=== PATIENT | male | born 1995 | race Caucasian/White ===

== ENCOUNTER 2016-11-24 19:47 | Emergency (ER) | payer OTHER ==
[2016-11-24 19:55] VITALS: BMI 29.8
--- NOTE | 2016-11-24 20:34 | PDOC ---
History of Present Illness - General Chief Complaint: Edema Stated Complaint: SWOLLEN FACE Time Seen by Provider: 11/24/16 20:02 - History of Present Illness Initial Comments: 11/24/16 20:25 Patient is a 21-year-old male with no significant past medical history complaining of right jaw pain since this morning. States woke up this morning with mild pain to the angle of the jaw then noticed swelling. Pain is 6/10, throbbing, worsen when he tries to open the mouth. Denies dental issue, fever, chills. No recent illness, no vial infections. Not worsened with eating. No SOB PMD: Dr. Kline PMHX: seasonal allergies ALL: NKDA GENERAL/CONSTITUTIONAL: [No fever or chills. No weakness. No weight change.] HEAD, EYES, EARS, NOSE AND THROAT: [No change in vision. No ear pain or discharge. No sore throat.] CARDIOVASCULAR: [No chest pain or shortness of breath.] RESPIRATORY: [No cough, wheezing, or hemoptysis.] GASTROINTESTINAL: [No nausea, vomiting, diarrhea or constipation. No rectal bleeding.] GENITOURINARY: [No dysuria, frequency, or change in urination.] MUSCULOSKELETAL: [No joint or muscle swelling or pain. No neck or back pain.] SKIN AND BREASTS: [No rash or easy bruising.] NEUROLOGIC: [No headache, vertigo, loss of consciousness, or loss of sensation.] PSYCHIATRIC: [No depression or anxiety.] ENDOCRINE: [No increased thirst. No abnormal weight change.] HEMATOLOGIC/LYMPHATIC: [No anemia, easy bleeding, or history of blood clots.] ALLERGIC/IMMUNOLOGIC: [No hives or skin allergy. No latex allergy.] GENERAL: [The patient is awake, alert, and fully oriented, in no acute distress. ] HEAD: [Normal with no signs of trauma.] EYES: [Pupils equal, round and reactive to light, extraocular movements intact, sclera anicteric, conjunctiva clear.] ENT: [Ears normal, nares patent, oropharynx clear without exudates, no swelling uvula midline. Moist mucous membranes, ] NECK: [Normal range of motion, supple without lymphadenopathy, JVD, or masses, ( +) swelling at the angle of the jaw, tenderness to palp, (-) lymphodenopathy in the head and neck ] LUNGS: [Breath sounds equal, clear to auscultation bilaterally. No wheezes, and no crackles.] HEART: [Regular rate and rhythm, normal S1 and S2 without murmur, rub.] ABDOMEN: [Soft, nontender, normoactive bowel sounds. No guarding, no rebound. No masses.] EXTREMITIES: [Normal range of motion, no edema. No clubbing or cyanosis. No cords, erythema, or tenderness.] NEUROLOGICAL: [Cranial nerves II through XII grossly intact. Normal speech, normal gait.] PSYCH: [Normal mood, normal affect.] SKIN: [Warm, Dry, normal turgor, no rashes or lesions noted.] Past History - Past Medical History Allergies/Adverse Reactions: Allergies Allergy/AdvReac Type Severity Reaction Status Date / Time No Known Allergies Allergy Verified 11/24/16 20:09 Home Medications: Ambulatory Orders Clindamycin [Cleocin -] 300 mg PO Q6HPO #28 capsule 11/24/16 Other medical history: denies - Psycho/Social/Smoking Cessation Hx Suicidal Ideation: No Smoking History: Never smoked Have you smoked in the past 12 months: Yes Number of Cigarettes Smoked Daily: 20 Information on smoking cessation initiated: No *Physical Exam - Vital Signs Last Vital Signs Temp Pulse Resp BP Pulse Ox 99.6 F 105 H 20 136/54 98 11/24/16 19:50 11/24/16 19:50 11/24/16 19:50 11/24/16 19:50 11/24/16 20:10 ED Treatment Course - LABORATORY CBC & Chemistry Diagram: 11/24/16 21:06 11/24/16 21:06 Medical Decision Making - Medical Decision Making 11/24/16 20:34 Patient is a 21 year old with no pmhx c/o swelling to the right angle of jaw started this morning unrelieved with compresses. DDx inclu paratitis, salivary gland stone, abscess labs, IVF, CT face with IV contrast declines pain meds CT facial bones with IV Patient Name: Flo Whyte THIS IS A PRELIMINARYREPORT FROM [facility] EXAM: CT facial bones with contrast IMAGES: 255 INDICATION: Right jaw swelling DATE OF SERVICE: 2016-11-24 22:44:35.0 COMPARISON: none FINDINGS: The intraorbital contents are intact. Visualized intracranial contents are normal. There is soft tissue edema inferior to the right parotid gland and adjacent to the right mandibular angle which may represent cellulitis. No abnormal fluid collections. The sinuses and visualized mastoid air cells are well aerated. There is no fracture. No CT findings for osteomyelitis. IMPRESSION: Possible cellulitis, without abscess or CT findings of osteomyelitis. THIS DOCUMENT HAS BEEN ELECTRONICALLY SIGNED Velasquez Barnes MD 11/24/2016 23:26 MATILDE Menard. Please call [facility] [phone] ([phone] with questions Patient given clindamycin 600mg IV Patient advised of the findings of the CT and the appropriate follow, and that he should return for fever, chills, obstruction of airway. to f/u with pmd *DC/Admit/Observation/Transfer Diagnosis at time of Disposition: Cellulitis and abscess of face - Discharge Dispostion Disposition: HOME Condition at time of disposition: Stable - Prescriptions Prescriptions: Clindamycin [Cleocin -] 300 mg PO Q6HPO #28 capsule - Referrals Referrals: Michael Kline MD [Primary Care Provider] - - Patient Instructions Printed Discharge Instructions: DI for Cellulitis -- Adult Additional Instructions: Your Discharge Instructions: You must call primary care physician within 24 hours to arrange follow-up. Return to the Emergency Department with any new, persistent or worsening symptoms, for fever, chills, SOB, dizziness or any other concerning changes that may occur. suck on lemon, use warm compresses to the right jaw.
[2016-11-24] MEDS ORDERED: SODIUM CHLORIDE 0.9% 1000 ML INFUS.BAG IV ONE (20:35)
[2016-11-24 21:11] LABS: BASOPHIL 0.5 % (0-2.0); EOSINOPHIL 3.8 % (0-4.5); MCHC 33.5 g/dl (32.0-35.9); MEAN CELL VOLUME 89.6 fl (80-96); MEAN PLT VOLUME 8.4 fl (7.5-11.1); PLATELET COUNT 188 K/MM3 (134-434); RDW 13.8 % (11.9-15.9); WHITE BLOOD COUNT 7.6 K/mm3 (4.0-10.0)
[2016-11-24 21:53] LABS: ANION GAP 7 (8-16); CALCIUM 9.1 mg/dL (8.5-10.1); CO2 29 mmol/L (21-32); CREATININE 0.7 mg/dL (0.7-1.3); GLUCOSE,RANDOM 102 mg/dL (74-106)
[2016-11-24] MEDS ORDERED: CLINDAMYCIN 600MG PREMIX IVPB 50 ML IVPB ONE (23:32)
[2016-11-25] MEDS ORDERED: CLINDAMYCIN 600MG PREMIX IVPB 50 ML IVPB ONE (00:14)
[2016-11-25 00:28] VITALS: BP 169/59; PULSE 80; TEMP 98.1
== END 2016-11-25 01:08 | disposition home or self-care (01) ==
LOC: JER 19:47
DX: L03.211 Cellulitis of face (principal)
CPT/HCPCS: 36415; 70487-TC; 80048; 85025; 99283-25